=== PATIENT | male | born 1970 | race Caucasian/White ===

== ENCOUNTER 2017-06-04 07:25 | Emergency (ER) | payer BC, OTHER ==
[2017-06-04 07:41] VITALS: BP 110/60
--- NOTE | 2017-06-04 07:54 | UC ---
Respiratory Complaint HPI - HPI Summary HPI Summary: C/O cough with wheezing x 6 days. Azithromycin x 4 days but has just gotten worse. Frontal sinus pain with coughing. - History of Current Complaint Chief Complaint: UCRespiratory Stated Complaint: FEVER,NORMAN,COUGH Time Seen by Provider: 06/04/17 07:48 Hx Obtained From: Patient Onset/Duration: Sudden Onset, Lasting Days - 6, Worse Since - 4 days Timing: Constant Severity Initially: Mild Severity Currently: Severe Pain Intensity: 7 Character: Cough: Nonproductive Aggravating Factors: Deep Breaths, Recumbent Position Alleviating Factors: Nothing Associated Signs And Symptoms: Positive: Fever, Chills, Wheezing, Nasal Congestion, Sinus Discomfort Related History: Seasonal Allergies - Allergies/Home Medications Allergies/Adverse Reactions: Allergies Allergy/AdvReac Type Severity Reaction Status Date / Time Penicillins Allergy Anaphylatic Verified 06/04/17 07:36 Shock Home Medications: Home Medications Albuterol HFA INHALER* [Ventolin HFA Inhaler*] 2 puff INH Q4H PRN 06/04/17 [ History Confirmed 06/04/17] Lisinopril TAB* [Prinivil TAB 10 MG*] 40 mg PO BID 06/04/17 [History Confirmed 06/04/17] Pravastatin (NF) [Pravachol (NF)] 40 mg PO QPM 06/04/17 [History Confirmed 06/04] Sitagliptin Phosphate [Januvia] 25 mg DAILY 06/04/17 [History Confirmed 06/04/17 ] glipiZIDE TAB* [Glucotrol TAB*] 5 mg BID 06/04/17 [History Confirmed 06/04/17] PMH/Surg Hx/FS Hx/Imm Hx Endocrine History: Diabetes Cardiovascular History: Hypertension Respiratory History: Asthma - Surgical History Surgical History: Yes Surgery Procedure, Year, and Place: L3-5 Fusion, 2009. Gastric bypass, 2004. Gallbladder - Family History Known Family History: Positive: Cardiac Disease Negative: Hypertension, Diabetes - Social History Occupation: Employed Full-time Lives: With Family Alcohol Use: Occasionally Substance Use Type: None Smoking Status (MU): Former Smoker Type: Smokeless Tobacco Amount Used/How Often: 5 cans a week Length of Time of Smoking/Using Tobacco: 12 Years Have You Smoked in the Last Year: No - Immunization History Most Recent Influenza Vaccination: not this season Review of Systems Constitutional: Fever, Chills ENT: Sinus Congestion, Sinus Pain/Tenderness Respiratory: Shortness Of Breath, Cough Musculoskeletal: Myalgia Is Patient Immunocompromised?: Yes - Diabetes All Other Systems Reviewed And Are Negative: Yes Physical Exam Triage Information Reviewed: Yes Appearance: No Pain Distress, Ill-Appearing, Obese Vital Signs: Initial Vital Signs Temp 98.2 F 06/04/17 07:36 Pulse 81 06/04/17 07:36 Resp 22 06/04/17 07:36 BP 110/60 06/04/17 07:36 Pulse Ox 97 06/04/17 07:36 Vital Signs Reviewed: Yes Eyes: Positive: Conjunctiva Clear ENT: Positive: Pharynx normal, Nasal congestion, TMs normal Neck exam: Normal Respiratory: Positive: Rhonchi - course upper airway, Wheezing - diffuse expiratory wheezes Cardiovascular Exam: Normal Musculoskeletal Exam: Normal Neurological Exam: Normal Psychological Exam: Normal Skin Exam: Normal UC Diagnostic Evaluation - Laboratory O2 Sat by Pulse Oximetry: 97 Re-Evaluation - Re-Evaluation First Eval Re-Evaluation Time: 08:33 Change: Improved - Still a little bit of wheezing, but air movement is much better. Respiratory Course/Dx - Differential Dx/Diagnosis Differential Diagnosis/HQI/PQRI: Asthma, Lower Resp Infection, Sinusitis Provider Diagnoses: Acute URI. Acute sinusitis. Asthma with acute exacerbation Discharge - Sign-Out/Discharge Documenting (check all that apply): Discharge/Admit/Transfer - Discharge Plan Condition: Stable Disposition: HOME Prescriptions: Cefdinir [Cefdinir 300 MG CAP] 300 mg PO BID #20 capsule predniSONE TAB* [Deltasone TAB*] 20 mg PO DAILY #18 tab Patient Education Materials: Upper Respiratory Infection (ED), Wheezing (ED), Prednisone (By mouth), Cefdinir (By mouth) Referrals: Chucho Zaragoza MD [Primary Care Provider] - Additional Instructions: NASAL SPRAYS AND DROPS: Afrin in the PUMP/ MIST bottle (Get generic 12 hours nasal decongestant spray). Tilt your head down and look at the floor while doing a strong sniff with the spray. Decongestant nasal sprays and drops often give dramatic relief from congestion. They are often recommended for patients with sinus infection to assist with sinus drainage. Persons with high blood pressure should consult the doctor before using these nasal sprays. Afrin and Mak-Synephrine are common [id number] preparations. They should not be used for more than five days, as "rebound" congestion can occur - - the congestion flares as the drug wears off. A way of dealing with this rebound congestion problem is to medicate only one nostril each time, allowing the other nostril to recover from the medicine' s effects. When you no longer need the drug during the day, spray only one nostril each night. This helps you sleep well without severe rebound congestion. Call the doctor if you develop severe headache, palpitations, or chest pain. - Billing Disposition and Condition Condition: STABLE Disposition: HOME
[2017-06-04] MEDS ORDERED: methylPREDNISolone 125 MG* 2 ML VIAL IM ONE (07:58)
[2017-06-04] MEDS ORDERED: Albuterol/Ipratropium NEB.SOL* Albuterol 2.5 MG/Ipratropium 0.5 MG 3 ML INH ONE (07:58)
== END 2017-06-04 08:46 | disposition home or self-care (01) ==
LOC: UCCORT 07:25
DX: J06.9 Acute upper respiratory infection, unspecified (principal); J01.90 Acute sinusitis, unspecified; J45.901 Unspecified asthma with (acute) exacerbation; Z87.891 Personal history of nicotine dependence; Z88.0 Allergy status to penicillin
CPT/HCPCS: 96372; 99202; A9270-GY; G0463; J2930

== ENCOUNTER 2017-11-24 13:48 | Emergency (ER) | payer BC ==
[2017-11-24] MEDS ORDERED: Albuterol/Ipratropium NEB.SOL* Albuterol 2.5 MG/Ipratropium 0.5 MG 3 ML INH ONE (14:20)
[2017-11-24] MEDS ORDERED: predniSONE TAB* 20 MG PO ONE (14:20)
--- NOTE | 2017-11-24 14:28 | ED ---
Respiratory - HPI Summary HPI Summary: 47 yr old with history of asthma, and presents here with chest congestion two days, and then SOB since overnight. He has worse symptoms with exertion, and he feels himself wheezing when he breaths out. He is coughing as well. No chest pain. No pleuritic chest pain. No dizziness. No fever or chills. He is a former smoker. - History of Current Complaint Chief Complaint: UCRespiratory Stated Complaint: SOB Time Seen by Provider: 11/24/17 14:06 Pain Intensity: 0 - Allergy/Home Medications Allergies/Adverse Reactions: Allergies Allergy/AdvReac Type Severity Reaction Status Date / Time Penicillins Allergy Anaphylatic Verified 11/24/17 14:00 Shock PMH/Surg Hx/FS Hx/Imm Hx Endocrine/Hematology History: Reports: Hx Diabetes - Type 2, Hx Thyroid Disease - Type 2 Cardiovascular History: Reports: Hx Hypertension Respiratory History: Reports: Hx Asthma - Surgical History Surgery Procedure, Year, and Place: L3-5 Fusion, 2009. Gastric bypass, 2004. Gallbladder Infectious Disease History: No Infectious Disease History: Denies: Traveled Outside the [place] in Last 30 Days - Family History Known Family History: Positive: Cardiac Disease Negative: Hypertension, Diabetes - Social History Alcohol Use: Occasionally Substance Use Type: Reports: None Smoking Status (MU): Former Smoker Type: Smokeless Tobacco Amount Used/How Often: 5 cans a week Length of Time of Smoking/Using Tobacco: 12 Years Have You Smoked in the Last Year: No Review of Systems Constitutional: Negative Positive: Shortness Of Breath, Cough All Other Systems Reviewed And Are Negative: Yes Physical Exam Triage Information Reviewed: Yes Vital Signs On Initial Exam: Initial Vitals Temp Pulse Resp BP Pulse Ox 97.9 F 100 26 176/108 97 11/24/17 13:49 11/24/17 13:49 11/24/17 13:49 11/24/17 13:49 11/24/17 13:49 Vital Signs Reviewed: Yes Appearance: Positive: Well-Appearing, No Pain Distress Skin: Positive: Warm, Skin Color Reflects Adequate Perfusion Head/Face: Positive: Normal Head/Face Inspection Eyes: Positive: EOMI ENT: Positive: Pharynx normal, Nasal congestion, TMs normal Neck: Positive: Nontender Respiratory/Lung Sounds: Positive: Wheezes - bilateral faint Cardiovascular: Positive: RRR. Negative: Murmur Abdomen Description: Positive: Nontender Musculoskeletal: Positive: Strength/ROM Intact Neurological: Positive: Sensory/Motor Intact, Alert, Oriented to Person Place, Time, CN Intact II-III Psychiatric: Positive: Normal - Avelina Coma Scale Best Eye Response: 4 - Spontaneous Best Motor Response: 6 - Obeys Commands Best Verbal Response: 5 - Oriented Coma Scale Total: 15 Diagnostics - Vital Signs Vital Signs Temp Pulse Resp BP Pulse Ox 11/24/17 13:49 97.9 F 100 26 176/108 97 - Laboratory Lab Statement: Any lab studies that have been ordered have been reviewed, and results considered in the medical decision making process. - EKG 11/24/17 Cardiac Rate: NL EKG Rhythm: Sinus Rhythm ST Segment: Normal Ectopy: None EKG Comparison: No Significant Change Disposition - Course Course Of Treatment: 47 yr old male with probable chf on chest xray. Called [place] BUST[facility], ISAURA March NP, and they will see for further work up. - Diagnoses Provider Diagnoses: CHF (congestive heart failure), Shortness of breath, Hypertension Discharge - Sign-Out/Discharge Documenting (check all that apply): Patient Departure All imaging exams completed and their final reports reviewed: Yes - Discharge Plan Condition: Good Disposition: TRANS HIGHER LVL OF CARE FAC Referrals: Chucho Zaragoza MD [Primary Care Provider] - - Billing Disposition and Condition Condition: GOOD Disposition: Trans Higher Lvl of Care Fac
--- NOTE | 2017-11-24 14:46 | RAD ---
HISTORY: sob ,cough COMPARISONS: June 28, 2012 VIEWS: 4: Frontal dual-energy and lateral views of the chest. FINDINGS: CARDIOMEDIASTINAL SILHOUETTE: The cardiomediastinal silhouette is normal. RASHIDA: The rashida are normal. PLEURA: The costophrenic angles are sharp. No pleural abnormalities are noted. LUNG PARENCHYMA: There is a diffuse pattern of reticular opacification. ABDOMEN: The upper abdomen is clear. There is no subphrenic gas. BONES AND SOFT TISSUES: No bone or soft tissue abnormalities are noted. OTHER: None. IMPRESSION: DIFFUSE INTERSTITIAL OPACIFICATION. THE DIFFERENTIAL INCLUDES PULMONARY INTERSTITIAL EDEMA OR INTERSTITIAL INFECTIOUS OR INFLAMMATORY PROCESSES, INCLUDING PNEUMONITIS.
[2017-11-24] MEDS ORDERED: Furosemide IV* 10 MG/ML 2 ML VIAL (20 MG) IV ONE (14:50)
[2017-11-24] MEDS ORDERED: Aspirin 81 mg CHEW TAB* 81 MG TAB.CHEW PO ONE (14:51)
[2017-11-24 15:10] VITALS: BP 137/108
== END 2017-11-24 15:10 | disposition short-term general hospital (02) ==
LOC: UCCORT 13:48
DX: I50.9 Heart failure, unspecified (principal); R06.02 Shortness of breath; I10 Essential (primary) hypertension; Z87.891 Personal history of nicotine dependence; Z88.0 Allergy status to penicillin
CPT/HCPCS: 71046; 93005; 99213; A9270-GY; G0463; J1940; J7512

== ENCOUNTER 2018-04-06 10:46 | Emergency (ER) | payer BC ==
--- OUTSIDE RECORDS SUMMARY | 2018-04-06 11:12 | XMS REPORT | Continuity of Care Document ---
:1970 External Reference #:[id number] Author Name Fransico Alcala M.D., [facility] Address [address] [place] [address] Care Team Providers Name Role Phone Kasi Garibay DPM Care Team Information Director Operating Room Unavailable Chucho Zaragoza MD Primary Care Physician Unavailable Payers Date Identification Numbers Payment Provider Subscriber Policy Number: [id number] Jacki Ivory PayID: [id number] [address] [address] [place] [address] Onset: 2005 Policy Number: [id number] Jacky Ivory Group Number: [id number] [address] [address] PayID: [id number] [place] [address] Onset: 2001 Policy Number: [id number] [facility] Stas Ivory Group Name: Workers Compensation [address] [place] [address] PayID: [id number] [place] [address] Onset: 2005 Policy Number: [id number] [facility] Stas Ivory Group Name: Workers Compensation [address] [address] PayID: [id number] [place] [address] Advance Directives Description No Information Available Problems Date Description Provider Status Onset: 03/29/2018 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 Onset: 03/20/2018 Paroxysmal ventricular tachycardia Fransico Alcala M.D., Active FACC Onset: 03/20/2018 Cerebral artery occlusion Fransico Alcala M.D., Active FACC Onset: 02/15/2018 Heart failure, unspecified Fransico Alcala M.D., Active FACC Onset: 12/05/2017 Cardiomyopathy, unspecified Fransico Alcala M.D., Active FACC Onset: 12/05/2017 Type 2 diabetes mellitus Fransico Alcala M.D., Active FACC Onset: 12/05/2017 Hyperlipidemia Fransico Alcala M.D., Active FACC Onset: 12/05/2017 Morbid obesity Fransico Alcala M.D., Active FACC Family History Date Family Member(s) Observation Comments Father Heart Attack Mother Heart Attack Social History Type Date Description Comments Sex Unknown Lives With Diet Patient follows no dietary restrictions 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 Independent with all ADL's Tobacco Use Start: Unknown Never Smoked Cigarettes Smoking Status Reviewed: 03/29/18 Never Smoked Cigarettes ETOH Use Currently consumes alcohol socially Allergies, Adverse Reactions, Alerts Date Description Reaction Status Severity Comments 06/04/2013 Penicillin Active Medications Medication Date Status Form Strength Qnty SIG Indications Ordering Provider Eliquis Active Tablets 5mg 60tab 1 tab I63.9 [place], 9 s by Carolyn mouth Simonetta twice a , MSN, day [employer] Amiodarone HCL Active Tablets 200mg 90tab 1 by Fredrick 9 s mouth , Fransico every MDede Gonzalez, day [facility] Entresto Active Tablets 24-26mg 120ta take Fredrick 9 bs one Fransico tablet Dede Graff, by [facility] mouth twice a day Lasix Active Tablets 40mg 90tab 1 by Fredrick 9 s mouth , Fransico every MDede Gonzalez, day FAC Spironolactone Active Tablets 25mg 90tab 1 by Fredrick 9 s mouth , Fransico every MDede Gonzalez, day [facility] Glipizide Active Tablets 1 po Unknown 0 bid Januvia Active Tablets 100mg 1 by Unknown 0 mouth every day Atorvastatin Active Tablets 40mg 1 by Unknown Calcium 0 mouth every day at night Invokana Active Tablets 300mg 90tab 1 by Niziol, 0 s mouth Chucho every MD day Spironolactone Hx Tablets 25mg 90tab 1 by Fredrick 8 - s mouth , Fransico every M. MSherif., 8 day FACC Lisinopril Hx Tablets 40mg 1 by Fredrick 8 - mouth , Fransico every M. MSherif., 9 day FACC Meloxicam Hx Tablets 15mg 30tab 1 po qd Vyas, 4 - s Delta Casillas, D.O. Lisinopril Hx Tablets 20mg 90tab 1 po qd Unknown 0 - s 8 Ventolin HFA Hx Aerosol 108(90Base prn Unknown 0 - ) mcg/Act 4 Benzonatate Hx Capsules 200mg po qd Unknown 0 - 4 Metformin HCL Hx Tablets 500mg 60tab 1 po Unknown 0 - s bid Unknown Furosemide Hx Tablets 40mg 1 by Unknown 0 - mouth Unknown every day prn Pravastatin Hx Tablets 40mg 1 by Unknown Sodium 0 - mouth Unknown every day Aspirin Adult Hx Tablets DR 81mg 1 by I63.9 Unknown Low Dose 0 - mouth every 9 day Medications Administered in Office Medication Date Status Form Strength Qnty SIG Indications Ordering Provider Depomedrol Administered Injection Vyas, 40mg/1cc Soheila Casillas (methylprednis D.O. olone acetate) Immunizations Description No Information Available Vital Signs Date Vital Result Comment 03/29/2018 9:08am BP Systolic Sitting Left Arm 102 mmHg BP Diastolic Sitting Left Arm 78 mmHg Heart Rate 96 /min Respiratory Rate 18 /min Height 72.75 inches 6'0.75" Weight 309.00 lb BMI (Body Mass Index) 41.0 kg/m2 BSA (Body Surface Area) 2.58 m2 [place] body weight in kilograms 83 kg O2 % BldC Oximetry 91 % Ora 03/20/2018 12:56pm BP Systolic Sitting Left Arm 119 mmHg BP Diastolic Sitting Left Arm 78 mmHg Heart Rate 103 /min Respiratory Rate 18 /min Height 72.75 inches 6'0.75" Weight 321.00 lb BMI (Body Mass Index) 42.6 kg/m2 BSA (Body Surface Area) 2.62 m2 [place] body weight in kilograms 83 kg O2 % BldC Oximetry 97 % 03/05/2018 2:09pm BP Systolic Sitting Left Arm 119 mmHg BP Diastolic Sitting Left Arm 86 mmHg Heart Rate 73 /min Respiratory Rate 16 /min Height 72.75 inches 6'0.75" Weight 312.00 lb BMI (Body Mass Index) 41.4 kg/m2 BSA (Body Surface Area) 2.59 m2 [place] body weight in kilograms 83 kg O2 % BldC Oximetry 97 % Ra 02/15/2018 11:13am BP Systolic 162 mmHg BP Diastolic 107 mmHg Heart Rate 93 /min Respiratory Rate 16 /min Height 72.75 inches 6'0.75" Weight 328.00 lb BMI (Body Mass Index) 43.6 kg/m2 BSA (Body Surface Area) 2.65 m2 [place] body weight in kilograms 83 kg O2 % BldC Oximetry 97 % 12/05/2017 2:34pm BP Systolic Sitting Left Arm 105 mmHg BP Diastolic Sitting Left Arm 68 mmHg Heart Rate 70 /min Respiratory Rate 18 /min Height 72.75 inches 6'0.75" Weight 309.00 lb BMI (Body Mass Index) 41.0 kg/m2 BSA (Body Surface Area) 2.58 m2 [place] body weight in kilograms 83 kg 06/04/2013 1:52pm BP Systolic Sitting Left Arm 160 mmHg BP Diastolic Sitting Left Arm 102 mmHg Height 72.75 inches 6'0.75" Weight 344.00 lb BMI (Body Mass Index) 45.7 kg/m2 BSA (Body Surface Area) 2.70 m2 Results Test Date Facility Test Result H/L Range Note CBC 03/20/2018 [facility] White Blood 8.9 K/uL N 3.4-10.5 1 W/Automated [address] Count Diff [place], [place] [id number] [phone] Red Blood Count 4.89 M/uL N 4.20-5.80 Hemoglobin 15.4 gm/dL N 12.8-17.0 Hematocrit 43.4 % N 38.0-48.0 Mean Cell Volume 88.8 fl N 80.0-96.0 Mean Corpuscular HGB 31.5 pg N 27.0-33.0 Mean Corpuscular HGB Conc 35.5 g/dL N 31.7-36.0 Platelet Count 261 K/uL N 155-360 Red Cell Distri Width SD 41.1 fl N 36-51 Red Cell Distri Width %CV 13.1 % N 11.6-15.8 Mean Platelet Volume 10.1 fL N 6.6-10.6 Neut% 64.7 % N 33.0-73.0 Lymph % 23.6 % N 20.0-42.0 [place] % 8.0 % N 0.0-10.0 Eo% 3.2 % N 0.0-6.6 Bas% 0.5 % N 0.0-1.1 Neut# 5.75 K/uL N 1.8-7.0 Lymph # 2.10 K/uL N 1.0-4.0 [place] # 0.71 K/uL N 0.0-0.8 Eos # 0.28 K/uL N 0.0-0.5 Baso # 0.04 K/uL N 0.0-0.1 Basic Metabolic 02/22/2018 [facility] Sodium 138 mmol /L N 135-145 Panel [phone] Potassium 5.0 mmol/L N 3.5-5.0 Chloride 100 mmol/L Low 101-111 Co2 Carbon Dioxide 29 mmol/L N 22-32 Anion Gap 9 mmol/L N 2-11 Glucose 275 mg/dL High 70-100 Blood Urea Nitrogen 19 mg/dL N 6-24 Creatinine 0.93 mg/dL N 0.67-1.17 BUN/Creatinine Ratio 20.4 High 8-20 Calcium 9.8 mg/dL N 8.6-10.3 Egfr Non- 86.4 >60 Egfr 104.5 >60 2 Basic Metabolic 12/22/2017 [facility] Sodium 137 mmol /L N 135-145 Panel [phone] Chloride 105 mmol/L N 101-111 Co2 Carbon Dioxide 25 mmol/L N 22-32 Glucose 175 mg/dL High 70-100 Blood Urea Nitrogen 17 mg/dL N 6-24 Creatinine 0.86 mg/dL N 0.67-1.17 BUN/Creatinine Ratio 19.8 N 8-20 Calcium 9.3 mg/dL N 8.6-10.3 Egfr Non- 94.5 >60 Egfr 114.4 >60 3 Potassium 5.1 mmol/L High 3.5-5.0 Anion Gap 7 mmol/L N 2-11 Basic Metabolic 12/14/2017 [facility] Sodium 137 mmol /L N 135-145 Panel [phone] Chloride 106 mmol/L N 101-111 Co2 Carbon Dioxide 25 mmol/L N 22-32 Glucose 128 mg/dL High 70-100 Blood Urea Nitrogen 30 mg/dL High 6-24 Creatinine 1.06 mg/dL N 0.67-1.17 BUN/Creatinine Ratio 28.3 High 8-20 Calcium 9.0 mg/dL N 8.6-10.3 Egfr Non- 74.3 >60 Egfr 89.8 >60 4 Potassium 5.5 mmol/L High 3.5-5.0 Anion Gap 6 mmol/L N 2-11 Anion Gap 11/26/2017 N2N/CCD Import Anion Gap 11 8-16 SerPl-sCnc SerPl-sCnc Automated blood 11/26/2017 N2N/CCD Import Automated blood 43.0 38.0-48. hematocrit (volume hematocrit (volume 0 fraction) fraction) Serum sodium 11/26/2017 N2N/CCD Import Serum sodium 141 136-145 measurement measurement Serum or plasma 11/26/2017 N2N/CCD Import Serum or plasma 33.0 urea urea nitrogen/creatinin nitrogen/creatinin e mass rati e mass ratio Serum or plasma 11/26/2017 N2N/CCD Import Serum or plasma 43 #H 7-18 urea nitrogen urea nitrogen measurement measurement (mass/vo (mass/volume) Serum or plasma 11/26/2017 N2N/CCD Import Serum or plasma 167 High 74- 106 glucose glucose measurement measurement (mass/volume) (mass/volume) Serum or plasma 11/26/2017 N2N/CCD Import Serum or plasma 1.3 0.6-1.3 creatinine creatinine measurement measurement (mass/volum (mass/volume) Automated blood 11/26/2017 N2N/CCD Import Automated blood 246 155-360 platelet count platelet count Automated blood 11/26/2017 N2N/CCD Import Automated blood 10.9 High 6.6- 10.6 platelet mean platelet mean volume measurement volume measurement Automated 11/26/2017 N2N/CCD Import Automated 31.5 27.0-33. erythrocyte mean erythrocyte mean 0 corpuscular corpuscular hemoglobin hemoglobin (mass per erythrocyte) Automated 11/26/2017 N2N/CCD Import Automated 33.7 31.7-36. erythrocyte mean erythrocyte mean 0 corpuscular corpuscular hemoglobin hemoglobin concentration measurement (mass/volume) Automated 11/26/2017 N2N/CCD Import Automated 93.5 80.0-96. erythrocyte mean erythrocyte mean 0 corpuscular volume corpuscular volume Blood erythrocytes 11/26/2017 N2N/CCD Import Blood erythrocytes 4.60 4.20-5.8 automated count automated count 0 (number/volume) (number/volume) Blood hemoglobin 11/26/2017 N2N/CCD Import Blood hemoglobin 14.5 12.8- 17. measurement measurement 0 (mass/volume) (mass/volume) Blood leukocytes 11/26/2017 N2N/CCD Import Blood leukocytes 16.4 High 3.4 -10.5 automated count automated count (number/volume) (number/volume) Serum or plasma 11/26/2017 N2N/CCD Import Serum or plasma 8.2 Low 8.5- 10.1 calcium calcium measurement measurement (mass/volume) (mass/volume) Serum carbon 11/26/2017 N2N/CCD Import Serum carbon 28 21-32 dioxide dioxide measurement measurement RDW RBC Auto-Rto 11/26/2017 N2N/CCD Import RDW RBC Auto-Rto 13.8 11.6- 15. 8 Potassium 11/26/2017 N2N/CCD Import Potassium 3.8 3.5-5.1 SerPl-sCnc SerPl-sCnc Chloride 11/26/2017 N2N/CCD Import Chloride 102 98-107 SerPl-sCnc SerPl-sCnc Serum or plasma 11/25/2017 N2N/CCD Import Serum or plasma 63 >40 cholesterol in HDL cholesterol in HDL measurement (ma measurement (mass/volume) Serum or plasma 11/25/2017 N2N/CCD Import Serum or plasma 96 < 100 cholesterol in LDL cholesterol in LDL measurement by measurement by calculation (mass/volume) Serum or plasma 11/25/2017 N2N/CCD Import Serum or plasma 181 <200 cholesterol cholesterol measurement measurement (mass/volu (mass/volume) RDW RBC Auto 11/25/2017 N2N/CCD Import RDW RBC Auto 44.4 36-51 Neutrophils/leuk 11/25/2017 N2N/CCD Import Neutrophils/leuk 92.3 High 33.0-73. NFr Bld Auto NFr Bld Auto 0 Serum or plasma 11/25/2017 N2N/CCD Import Serum or plasma 109 <150 triglyceride triglyceride measurement measurement (mass/vol (mass/volume) * Miscellaneous 11/25/2017 N2N/CCD Import * Miscellaneous Test(s) studies (set) studies (set) added Automated blood 11/25/2017 N2N/CCD Import Automated blood 0.01 0.0-0.1 basophil count basophil count (count/volume) (count/volume) Automated blood 11/25/2017 N2N/CCD Import Automated blood 0.00 0.0-0.5 eosinophil count eosinophil count Automated blood 11/25/2017 N2N/CCD Import Automated blood 0.84 Low 1.0- 4.0 lymphocyte count lymphocyte count (number/volume) (number/volume) Basophils/leuk NFr 11/25/2017 N2N/CCD Import Basophils/leuk NFr 0.1 0.0- 1.1 Bld Auto Bld Auto Blood monocytes 11/25/2017 N2N/CCD Import Blood monocytes 0.23 0.0-0.8 automated count automated count (number/volume) (number/volume) Eosinophil/leuk 11/25/2017 N2N/CCD Import Eosinophil/leuk 0.0 0.0-6.6 NFr Bld Auto NFr Bld Auto Neutrophils # Bld 11/25/2017 N2N/CCD Import Neutrophils # Bld 12.90 High 1.8-7.0 Auto Auto Monocytes/leuk NFr 11/25/2017 N2N/CCD Import Monocytes/leuk NFr 1.6 0.0- 10.0 Bld Auto Bld Auto Lymphocytes/leuk 11/25/2017 N2N/CCD Import Lymphocytes/leuk 6.0 Low 20.0- 42. NFr Bld Auto NFr Bld Auto 0 Arterial blood 11/24/2017 N2N/CCD Import Arterial blood 86 Low 93-98 oxygen saturation oxygen saturation measurement by pu measurement by pulse oximetry Determination of 11/24/2017 N2N/CCD Import Determination of 21 21-100 inhaled oxygen inhaled oxygen concentration (vol concentration (volume fraction) Heart rate by 11/24/2017 N2N/CCD Import Heart rate by 92 oximetry oximetry Unloinc 11/24/2017 N2N/CCD Import Unloinc Resting Unloinc Lying Flat In Bed Influenza virus A 11/24/2017 N2N/CCD Import Influenza virus A Negative ( Negative) antigen detection antigen detection Unloinc 11/24/2017 N2N/CCD Import Unloinc . TSH SerPl-aCnc 11/24/2017 N2N/CCD Import TSH SerPl-aCnc 0.82 0.30-4.20 Serum or plasma 11/24/2017 N2N/CCD Import Serum or plasma 0.4 0.2-1.0 total bilirubin total bilirubin measurement (mass/ measurement (mass/volume) Serum or plasma 11/24/2017 N2N/CCD Import Serum or plasma 7.2 6.4-8.2 protein measurement protein (mass/volume) measurement (mass/volume) Serum or plasma 11/24/2017 N2N/CCD Import Serum or plasma 1085.0 High < 125 natriuretic peptide natriuretic B prohormone N peptide B prohormone N-terminal measurement (mass/volume) Serum or plasma 11/24/2017 N2N/CCD Import Serum or plasma 1.8 1.8-2.4 magnesium magnesium measurement measurement (mass/volume (mass/volume) Serum or plasma 11/24/2017 N2N/CCD Import Serum or plasma 0.99 0.76- 1.46 free thyroxine free thyroxine (FT4) measurement ( (FT4) measurement (mass/volume) Serum or plasma 11/24/2017 N2N/CCD Import Serum or plasma 17 15-37 aspartate aspartate aminotransferase aminotransferase measure measurement (enzymatic activity/volume) Serum or plasma 11/24/2017 N2N/CCD Import Serum or plasma 96 45-117 alkaline alkaline phosphatase phosphatase measurement ( measurement (enzymatic activity/volume) Serum or plasma 11/24/2017 N2N/CCD Import Serum or plasma 3.6 3.4-5.0 albumin measurement albumin (mass/volume) measurement (mass/volume) Globulin Ser 11/24/2017 N2N/CCD Import Globulin Ser 3.6 1.9-4.3 Calc-mCnc Calc-mCnc Erythrocyte 11/24/2017 N2N/CCD Import Erythrocyte 5 0-15 sedimentation rate sedimentation rate by 15 minute readin by 15 minute reading Albumin/Glob SerPl 11/24/2017 N2N/CCD Import Albumin/Glob SerPl 1.0 Alt SerPl-cCnc 11/24/2017 N2N/CCD Import Alt SerPl-cCnc 33 12-78 Legionella 11/24/2017 N2N/CCD Import Legionella Negative Negative pneumophila 1 Ag pneumophila 1 Ag [Presence] in Urine [Presence] in by Urine by Immunoassay Rapid influenza B 11/24/2017 N2N/CCD Import Rapid influenza B Negative ( Negative) antigen detection antigen detection 1 I42.9 2 Because ethnic data is not always readily available, this report includes an eGFR for both -Americans and non- Americans. The National Kidney Disease Education Program (NKDEP) does not endorse the use of the MDRD equation for patients that are not between the ages of 18 and 70, are , have extremes of body size, muscle mass, or nutritional status, or are non- or non-. According to the National Kidney Foundation, irrespective of diagnosis, the stage of the disease is based on the level of kidney function: Stage Description GFR(mL/min/1.73 m(2)) 1 Kidney damage with normal or decreased GFR 90 2 Kidney damage with mild decrease in GFR 60-89 3 Moderate decrease in GFR 30-59 4 Severe decrease in GFR 15-29 5 Kidney failure <15 (or dialysis) 3 Because ethnic data is not always readily available, this report includes an eGFR for both -Americans and non- Americans. The National Kidney Disease Education Program (NKDEP) does not endorse the use of the MDRD equation for patients that are not between the ages of 18 and 70, are , have extremes of body size, muscle mass, or nutritional status, or are non- or non-. According to the National Kidney Foundation, irrespective of diagnosis, the stage of the disease is based on the level of kidney function: Stage Description GFR(mL/min/1.73 m(2)) 1 Kidney damage with normal or decreased GFR 90 2 Kidney damage with mild decrease in GFR 60-89 3 Moderate decrease in GFR 30-59 4 Severe decrease in GFR 15-29 5 Kidney failure <15 (or dialysis) 4 Because ethnic data is not always readily available, this report includes an eGFR for both -Americans and non- Americans. The National Kidney Disease Education Program (NKDEP) does not endorse the use of the MDRD equation for patients that are not between the ages of 18 and 70, are , have extremes of body size, muscle mass, or nutritional status, or are non- or non-. According to the National Kidney Foundation, irrespective of diagnosis, the stage of the disease is based on the level of kidney function: Stage Description GFR(mL/min/1.73 m(2)) 1 Kidney damage with normal or decreased GFR 90 2 Kidney damage with mild decrease in GFR 60-89 3 Moderate decrease in GFR 30-59 4 Severe decrease in GFR 15-29 5 Kidney failure <15 (or dialysis) Procedures Date Code Description Status 12/05/2017 42761 EKG-Tracing And Report Completed 11/30/2017 22097 Echocardiogram Complete Completed 07/17/2013 11279 Asp./Injection major joint Completed 06/04/2013 34354 Radiology, Shoulder: Two Views (Sso) Completed Encounters Type Date Location Provider Dx Diagnosis Office Visit 03/29/2018 Cardiology Office Fransico Alcala I42.9 Cardiomyopathy, 9:00a Dede Graff, FACC unspecified I47.2 Ventricular tachycardia I25.10 Athscl heart disease of huslia coronary artery w/o ang pctrs I63.9 Cerebral infarction, unspecified Office Visit 03/20/2018 Cardiology Maxim Alcala42.9 Cardiomyopathy, 1:00p Office Fransico Graff M.D., unspecified FACC I63.9 Cerebral infarction, unspecified I47.2 Ventricular tachycardia Office Visit 03/05/2018 2:00p Cardiology Carolyn Ferris I63.9 Cerebral Office JEAN Novak, infarction, [employer] unspecified I42.9 Cardiomyopathy, unspecified E78.5 Hyperlipidemia, unspecified I50.9 Heart failure, unspecified E11.9 Type 2 diabetes mellitus without complications Office Visit 02/15/2018 Cardiology Juju Alcala Cardiomyopathy, 11:20a Office Fransico Graff M.D., unspecified FACC E78.5 Hyperlipidemia, unspecified E11.9 Type 2 diabetes mellitus without complications I50.9 Heart failure, unspecified Office Visit 12/05/2017 Cardiology Fredrick, I42.9 Cardiomyopathy, 2:40p Office Fransico Graff M.D., unspecified FACC E66.01 Morbid (severe) obesity due to excess calories E78.5 Hyperlipidemia, unspecified E11.9 Type 2 diabetes mellitus without complications Office Visit 07/17/2013 2:45p Orthopaedic Office Delta Vyas 717.2 Derangement Sonja, D.O. Posterior Horn Medial Meniscus Office Visit 06/04/2013 1:45p Orthopaedic Office Delta Vyas 726.10 Bursae & Tendon Stacey., D.O. Disorders Shoulder Region Unspec 715.11 Osteoarthrosis Localized Prim Shoulder Region 726.13 Partial Tear Of Rotator Cuff Office Visit 08/08/2006 Orthopaedic Abbie Espitia 727.06 Tenosynovitis Foot 2:45p Office [facility] 726.90 Enthesopathy Unspec Site Office Visit 06/16/2006 11:00a Orthopaedic Office Abbie Espitia 719.47 Pain Joint MD [facility] Plan of Treatment Future Appointment(s):07/05/2018 4:00 pm - Fransico Alcala M.D., FACC at Cardiology [facility]/29/2018 - Fransico Alcala M.D., FACCI42.9 Cardiomyopathy, unspecifiedNew Orders:Echocardiogram, Ordered: 03/29/18Comments: Non-ischemic CMP. His symptoms have dramatically improved. He is able to walk only limited by his back pain. His BP is low and I prefer not to introduce changes in the medications now. He will continuewith entresto and spironolactone. My hope in the next 3 months we will be able to see also an objective improvement in his EF. This will help him keep his job and will decrease the need for a primary prevention ICD.I47.2 Ventricular tachycardiaComments:He did not have symptoms during his VT. I believe that the main reason was the brief duration. He isnow on amiodarone. He will stop his EM.I25.10 Atherosclerotic heart disease of [place] coronary artery without angina pectorisComments:He is on atorvastatin. His CAD is not severe and definitely does not explain his CMP.I63.9 Cerebral infarction, unspecifiedComments:Will continue EliquisAllFollow up:Follow up visit in three months.
[2018-04-06 11:20] VITALS: BP 113/83
--- NOTE | 2018-04-06 12:21 | UC ---
Lower Extremity/Ankle HPI - HPI Summary HPI Summary: 47-year-old male presents with 3 week history of left foot pain. Describes pain as an intense ache that improves after he is up and ambulating for a while. States pain is at its worst when he first steps on the foot first thing in the morning or after sitting for an extended period of time. Pain is located to the lateral aspect of his dorsal left foot. Reports that he did have a previous fracture in that area as a child. Denies injury, fever, chills , erythema, swelling, or open wounds. - History of Current Complaint Chief Complaint: UCLowerExtremity Stated Complaint: LEFT FOOT/ANKLE PAIN Time Seen by Provider: 04/06/18 12:11 Hx Obtained From: Patient Pain Intensity: 3 - Allergies/Home Medications Allergies/Adverse Reactions: Allergies Allergy/AdvReac Type Severity Reaction Status Date / Time Penicillins Allergy Anaphylatic Verified 04/06/18 11:17 Shock PMH/Surg Hx/FS Hx/Imm Hx Endocrine History: Diabetes, Dyslipidemia Cardiovascular History: Hypertension Respiratory History: Asthma - Surgical History Surgical History: Yes Surgery Procedure, Year, and Place: L3-5 Fusion, 2009. Gastric bypass, 2004. Gallbladder - Family History Known Family History: Positive: Cardiac Disease Negative: Hypertension, Diabetes - Social History Occupation: Employed Full-time Lives: With Family Alcohol Use: None Substance Use Type: None Smoking Status (MU): Current Every Day Smoker Type: Smokeless Tobacco Amount Used/How Often: 5 cans a week Length of Time of Smoking/Using Tobacco: 12 Years Have You Smoked in the Last Year: No - Immunization History Most Recent Influenza Vaccination: not this season Review of Systems All Other Systems Reviewed And Are Negative: Yes Constitutional: Negative: Fever, Chills Skin: Negative: Rash, Bruising, Other - lesions, open wounds Respiratory: Positive: Negative Cardiovascular: Positive: Negative Gastrointestinal: Positive: Negative Genitourinary: Positive: Negative Motor: Negative: Weakness Neurovascular: Negative: Decreased Sensation Musculoskeletal: Positive: Other: - See HPI Neurological: Positive: Negative Is Patient Immunocompromised?: No Physical Exam - Summary Physical Exam Summary: GENERAL APPEARANCE: Well developed, obese, alert and cooperative, and appears to be in no acute distress. CARDIAC: Normal S1 and S2. No S3, S4 or murmurs. Rhythm is regular. There is no peripheral edema, cyanosis or pallor. Extremities are warm and well perfused. Capillary refill is less than 2 seconds. Peripheral pulses intact. LUNGS: Clear to auscultation without rales, rhonchi, wheezing or diminished breath sounds. ABDOMEN: Positive bowel sounds. Soft, nondistended, nontender. No guarding or rebound. No masses or hepatosplenomegally. MUSKULOSKELETAL: Normal muscular development. Limping gait. EXTREMITIES: Tenderness with palpation to the lateral aspect of dorsal left foot. No erythema, ecchymosis, edema, lesions, or deformity noted. Circulation and sensation intact distally. SKIN: Skin normal color, texture and turgor with no lesions or eruptions. Triage Information Reviewed: Yes Vital Signs: Initial Vital Signs Temp 98.2 F 04/06/18 11:15 Pulse 88 04/06/18 11:15 Resp 18 04/06/18 11:15 BP 113/83 04/06/18 11:15 Pulse Ox 99 04/06/18 11:15 Vital Signs Reviewed: Yes Diagnostics - Radiology No standard instances Radiology Interpretation Completed By: Radiologist Summary of Radiographic Findings: Patient Name: SHAWN COTE Medical Record#: [id number]. Ordering Physician: River Singh NP Acct.#: [id number]. : 1970 Age: 47 Sex: M Location: [facility]. Exam Date: 1224 ADM Status: REG ER. Order Information: FOOT LEFT 3+ VWS. Accession Number: [id number]. CPT: 75477. Indication: Left foot pain. 3 views of left foot demonstrates no fracture or dislocation. No other bone or joint abnormality is identified. IMPRESSION: No fracture of the left foot is noted. Lower Extremity Course/Dx - Course Course Of Treatment: 47-year-old male presents with 3 week history of left foot pain. Describes pain as an intense ache that improves after he is up and ambulating for a while. States pain is at its worst when he first steps on the foot first thing in the morning or after sitting for an extended period of time. Pain is located to the lateral aspect of his dorsal left foot. Reports that he did have a previous fracture in that area as a child. Denies injury, fever, chills, erythema, swelling, or open wounds. Afebrile. Vital signs stable. X-ray reveals adult male in no acute distress with tenderness to the lateral aspect of his dorsal left foot, no erythema, ecchymosis, lesions, open wounds, or deformities noted, limping gait, and otherwise unremarkable exam. X- ray showed no evidence of fracture or dislocation. I suspect his pain may be from a plantar fascitis although I cannot fully rule out the possibility of tendinitis or beginnings of peripheral neuropathy. Discussed findings with the patient and am recommending symptomatic treatment including a short course of NSAIDs as well as exercises for plantar fasciitis. He is to follow-up with primary care provider in 5 days if symptoms do not improve. Anticipatory guidance and warning symptoms were reviewed with the patient. Verbalizes understanding and agrees with plan of care. - Differential Dx/Diagnosis Differential Diagnosis/HQI/PQRI: Arthritis, Contusion, Fracture (Closed), Gout, Sprain, Tendonitis, Tenosynovitis, Other - plantar faciitis Provider Diagnosis: Plantar fasciitis of left foot Discharge - Sign-Out/Discharge Documenting (check all that apply): Patient Departure All imaging exams completed and their final reports reviewed: Yes - Discharge Plan Condition: Stable Disposition: HOME Prescriptions: Naproxen [Naproxen 375 mg tab] 375 mg PO Q12HR #20 tablet Patient Education Materials: Plantar Fasciitis Exercises (GEN), Plantar Fasciitis (ED) Referrals: Chucho Zaragoza MD [Primary Care Provider] - 5 Days (If no improvement.) Additional Instructions: The x-ray performed in the clinic today showed no evidence of fracture. I suspect that you may have a condition called planter fasciitis although I cannot fully exclude another cause such as tendonitis or diabetic neuropathy. Take naproxen 375 mg 1 tab every 12 hours for the next 7 days then may take as needed. I have provided you with some exercises you can perform to help improve your symptoms. Follow up with your primary care provider in 5 days if symptoms do not improve. Seek immediate medical attention in the emergency room if you develop fever greater than 100.5 F, have worsening of pain despite taking pain medication, develop redness or swelling of the foot, are unable to ambulate, or have any worsening of symptoms. - Billing Disposition and Condition Condition: STABLE Disposition: Home - Attestation Statements Provider Attestation: Per institutional requirements, I have reviewed the chart, however, I was not consulted specifically or made aware of this patient by the midlevel provider. I did not personally evaluate, interact with , or disposition this patient.
== END 2018-04-06 13:04 | disposition home or self-care (01) ==
LOC: UCCORT 10:46
DX: M72.2 Plantar fascial fibromatosis (principal); E11.9 Type 2 diabetes mellitus without complications; F17.290 Nicotine dependence, other tobacco product, uncomplicated; I10 Essential (primary) hypertension; J45.909 Unspecified asthma, uncomplicated; E66.9 Obesity, unspecified; Z88.0 Allergy status to penicillin
CPT/HCPCS: 99212; G0463

== ENCOUNTER → 2019-01-16 13:17 | Day surgery (SDC) | payer OTHER ==
[~2019-01-16 13:17] MED LIST: Acetaminophen TAB* 325 MG ONE; Acetaminophen TAB* 325 MG PO ONE; Acetaminophen TAB* 325 MG PO PRN; Buffered Lidocaine 1% SYRIN* 1 ML/SYRINGE INTRADERM ONE; Cisatracurium* 2 MG/ML MDV 5 ML ONE; Dexamethasone IV* 4 MG/ML 1 ML (4 MG) ONE; DiMENhydriNATE IV* 50 MG/ML VIAL IV PUSH PRN; EPHEDrine (Pressors)* 50 MG/ML VIAL ONE; Famotidine IV* 10 MG/ML 2 ML (20 mg) IV ONE; Famotidine IV* 10 MG/ML 2 ML (20 mg) ONE; Gabapentin CAP(*) 400 MG PO ONE; HYDROcodone/ACETAMIN 5-325 MG* 1 TAB ONE; HYDROcodone/ACETAMIN 5-325 MG* 1 TAB PO PRN; Ketorolac INJ* 30 MG/ML 1 ML VIAL ONE; Lactated Ringers 1000 ML Bag* 1,000 ML IV SCH; Lidocaine 2% PF * 5 ML VIAL ONE; Midazolam* 1 MG/ML 5 ML VIAL (5 MG) ONE; Naloxone* 0.4 MG/ML 1 ML VIAL IV PRN; Ondansetron INJ* 2 MG/ML VIAL IV PRN; Ondansetron INJ* 2 MG/ML VIAL ONE; Propofol* 10 MG/ML 20 ML BTL ONE; Ropivacaine 0.2% * 2 MG/ML VIAL ONE; Succinylcholine* 20 MG/ML 10 ML VIAL ONE; ceFAZolin 1 GM ADVAN(*) 1 GM ADDV.VIAL IVPB ONE; ceFAZolin 2 GM PREMIX in ORs 2 GM/50 ML BAG ONE; diPHENhydraMINE IV* 50 MG/ML 1 ml VIAL (BENADRYL) IV PRN; fentaNYL* 50 MCG/ML 2 ML VIAL (100 MCG VIAL) ONE
[2019-01-16] MEDS: fentaNYL* 50 MCG/ML 2 ML VIAL (100 MCG VIAL) IV PRN ×2 (19:45→19:50)
[2019-01-16 21:08] VITALS: BP 163/95
--- NOTE | 2019-01-17 12:53 | OP ---
CC: PCP, Chucho Zaragoza MD * DATE OF OPERATION: 01/16/19 - [facility] DATE OF : 66 SURGEON: Kareen Hunt MD. CRM MARKETING MANAGER: EUGENE Lorenzana. An sales service assistant was needed for the entirety of the case to help with position, retraction, and was utilized throughout all portions of the case. ANESTHESIOLOGIST: Dr. Page. ANESTHESIA: General. PRE-OP DIAGNOSES: 1. Right shoulder osteoarthritis. 2. Right shoulder partial-thickness tear of the rotator cuff with bicipital tendonitis. POST-OP DIAGNOSES: 1. Right shoulder osteoarthritis. 2. Right shoulder partial-thickness tear of the rotator cuff with bicipital tendonitis. OPERATIVE PROCEDURE: Right shoulder arthroscopy with: 1. Extensive glenohumeral debridement including biceps tenotomy and chondroplasty. 2. Subacromial decompression with acromioplasty. 3. Rotator cuff repair using Regeneten patch. COMPLICATIONS: None. ESTIMATED BLOOD LOSS: Minimal. IMPLANTS: One size medium Regeneten patch. INDICATIONS: Stas Ivory is a 48-year-old man who sustained a work-related injury. He has had persistent increasing pain. He does have some arthritis on imaging, but he had a partial-thickness tear of the rotator cuff. He responded to the injection, physical therapy, antiinflammatories, ice, and heat initially and then it began to bother him. After extensive discussion of the risks and benefits of operative versus nonoperative treatment, he has elected to proceed with surgical treatment. Risks included but not limited to bleeding, infection , damage to nerves; vessels; surrounding structures, wound nonhealing, persistent pain, need for further surgery, scarring, stiffness, incomplete relief of symptoms, and risks of anesthesia. DESCRIPTION OF PROCEDURE: The patient was greeted in the preoperative area by the attending surgeon. The correct extremity was marked and consent was confirmed. The patient was brought back to the operating suite and was placed in the supine position on the operating table. He then underwent general anesthesia with endotracheal intubation, after which he was placed in the left lateral decubitus position with all bony prominences padded and secured with pegboard. The right arm was draped unsterile with 10 pounds of traction. The right shoulder was then prepped and draped in the usual sterile fashion, beginning with chlorhexidine soap, scrub, and alcohol wipe and a final prep of ChloraPrep. After appropriate surgical pause indicating the side, site, procedure, and administration of antibiotics, the standard posterolateral portal was made sharply with 11 blade. The scope was introduced into the joint and the joint was examined. It was difficult to get into the joint to begin with due to a very stiff shoulder. The scope was positioned in the subacromial space initially and a lateral portal was made in an outside-in fashion. A shaver was used to do decompression. This exposed some partial tearing of the bursal side of the rotator cuff. The undersurface of the acromion was skeletonized. At this point, some soft tissues were cleared and an incision was made to try to get into the joint anteriorly. An 18-gauge needle was used to localize the anterior aspect of the joint and then a cannula was placed. This helped to facilitate scope placement in the joint. Once the joint was visualized, there was abundant arthritis that was present more than it appeared on the MRI. The biceps was then visualized and found to be subluxed and there was a SLAP type II tear. There was no obvious loose body. A shaver was used to debride back the anterior, posterior and superior labrum and do a biceps tenotomy. The undersurface of the rotator cuff appeared to be intact with some mild fraying. The suprascapularis and subscapularis was intact. Attention was directed back to the subacromial space. With the scope positioned in the subacromial space, a 4-0 oval ozzie was then used to do an acromioplasty to remove the moderate-size anterolateral spur. The decision was made because of this patient's symptoms to try to treat the rotator cuff. He did have interstitial tearing. The Regeneten patches were then brought into the field and then placed under arthroscopic and direct visualization. It was then secured through separate stab incision with tendon sekou and then laterally with PEEK sekou to the bone. Final images were obtained. The wound was copiously irrigated with sterile saline. The portals were closed with 3-0 nylon and sterile dressings were applied. A regular sling was applied. The wounds were injected with about 32 cc of 0.25% ropivacaine. Sterile dressings were applied, a Cryo/Cuff and a regular sling. He was awoken from anesthesia and transferred to the PACU in stable condition. POSTOPERATIVE PLAN: He will be nonweightbearing. He will start range of motion and physical therapy in the next few days. He will be discharged on pain medications. DVT prophylaxis was considered but deferred, but he is on Eliquis, so he will restart that on postop day 1. [id number]/[facility] #: [id number] MTDStacey
== END | disposition home or self-care (01) ==
LOC: OR 13:17
PROVIDERS: ATTEND Orthopaedic Surgery
DX: S46.011A Strain of muscle(s) and tendon(s) of the rotator cuff of right shoulder, initial encounter (principal); S46.111A Strain of muscle, fascia and tendon of long head of biceps, right arm, initial encounter; M75.21 Bicipital tendinitis, right shoulder; M19.011 Primary osteoarthritis, right shoulder; I10 Essential (primary) hypertension; J45.909 Unspecified asthma, uncomplicated; E78.00 Pure hypercholesterolemia, unspecified; Z86.718 Personal history of other venous thrombosis and embolism; Z79.01 Long term (current) use of anticoagulants; Z88.0 Allergy status to penicillin; Z72.0 Tobacco use; X58.XXXA Exposure to other specified factors, initial encounter; Y92.9 Unspecified place or not applicable; Y99.0 Civilian activity done for income or pay
CPT/HCPCS: A9270-GY; C1713; J0330; J0690; J1100; J1885; J2250; J2405; J2704; J2795; J3010

== ENCOUNTER 2019-03-11 08:35 | Emergency (ER) | payer BC, OTHER ==
--- OUTSIDE RECORDS SUMMARY | 2019-03-11 08:44 | XMS REPORT | Continuity of Care Document ---
:1970 External Reference #:[id number] Author Name Kareen Hunt MD (transmitted by agent of provider Ryann Foley) Address [address] [facility], [facility] [place] [address] Care Team Providers Name Role Phone Chucho Zaragoza MD - Family Medicine Care Team Information Director Search Problems Active Problems Provider Date Strain of rotator cuff capsule Kareen Hunt MD Onset: 11/22/2018 Strain of muscle of long head of biceps brachii Kareen Hunt MD Onset: 11/22 Social History Type Date Description Comments Sex Unknown Tobacco Use Start: Unknown chewing tobacco Smoking Status Reviewed: 01/29/19 chewing tobacco Allergies, Adverse Reactions, Alerts Active Allergies Reaction Severity Comments Date Penicillin 10/26/2018 Medications Active Medications SIG Qnty Indications Ordering Date Provider Diclofenac Sodium apply up to 4 300gm M19.011 Kareen Hunt MD 01/29/2019 1% Gel times a day to right shoulder as needed Carvedilol Take 1 Tablet By Unknown 3.125mg Tablets Mouth Twice Daily Furosemide Take 1 Tablet By Unknown 40mg Tablets Mouth Once Daily Invokana Take 1 Tablet By Unknown 300mg Tablets Mouth Once Daily Before The First Meal Of The Day Eliquis Take 1 Tablet By Unknown 5mg Tablets Mouth Twice Daily Glipizide Take 1 Tablet By Unknown 10mg Tablets Mouth Twice Daily Amiodarone HCL Fredrick, 200mg MD Fransico Tablets Atorvastatin Calcium Unknown 40mg Tablets Spironolactone Take 1 Tablet By Unknown 25mg Tablets Mouth Once Daily Entresto Take 1 Tablet By Unknown 24-26mg Tablets Mouth Twice Daily Chucho Epps, 1.5mg/0.5ML Solution Pen-Inject History Medications Percocet take 1 tabs by jaspreet Hunt MD 01/16/2019 - 5-325mg Tablets mouth q4-6 hours 01/29/2019 as needed pain Cyclobenzaprine HCL 1-2 tablets by jaspreet Hunt MD 10/26/2018 - 5mg Tablets mouth every 8 01/29/2019 hours as needed for muscle spasm Medications Administered in Office Medication SIG Qnty Indications Ordering Provider Date Triamcinolone (Kenalog) Kareen Hunt MD 11/22/2018 Injection Immunizations Description No Information Available Vital Signs Date Vital Result Comment 01/29/2019 8:13am Height 73 inches 6'1" Weight 305.00 lb Heart Rate 72 /min BP Systolic 120 mmHg BP Diastolic 88 mmHg Respiratory Rate 16 /min Body Temperature 97.8 F Pain Level 4 BMI (Body Mass Index) 40.2 kg/m2 12/18/2018 8:56am Height 73 inches 6'1" Weight 314.00 lb Heart Rate 80 /min BP Systolic 130 mmHg BP Diastolic 78 mmHg Body Temperature 98.2 F Pain Level 5 BMI (Body Mass Index) 41.4 kg/m2 Results Test Acquired Date Facility Test Result H/L Range Note Laboratory test 01/16/2019 [facility] of 93 mg/dL Normal 70-100 1 finding 101 DATES [facility] Care Glucose [place], [place] [id number] [phone] Laboratory test 01/16/2019 [facility] of 102 mg/dL High 70-[address] [place] [address] [phone] Corrective Therapist: [id number] 2 Corrective Therapist: [id number] Procedures Date Code Description Status 01/16/2019 27608 Arthroscopy Shoulder,W/Rotator Cuff Repair Completed 01/16/2019 13529 Arthroscopy Shoulder,W/Rotator Cuff Repair Completed 01/16/2019 27054 Arthroscopy,Shoulder Decompression Of Subacromial Space Completed W/Acromio 01/16/2019 08383 Arthroscopy,Shoulder Decompression Of Subacromial Space Completed W/Acromio 11/22/2018 57212 Inject/Drain Joint/Bursa Major W/O US Completed Medical Devices Description No Information Available Encounters Type Date Location Provider Dx Diagnosis Office Visit 11/22/2018 Diane Hunt MD S46.011D Strain of 1:00p at [place] musc/tend the rotator cuff of right shoulder, subs S46.111D Strain of musc/fasc/tend long hd bicep, right arm, subs Office Visit 10/26/2018 9:00a [facility] Kareen Hunt, M25.511 Pain in right at [place] shoulder S46.011A Strain of musc/tend the rotator cuff of right shoulder, init S19.9xxA Unspecified injury of neck, initial encounter Assessments Date Code Description Provider 01/29/2019 M19.011 Primary osteoarthritis, right shoulder Kareen Hunt MD 01/29/2019 S46.011A Strain of muscle(s) and tendon(s) of the Kareen Hunt MD rotator cuff of right shoulder, initial encounter 01/29/2019 M75.21 Bicipital tendinitis, right shoulder Kareen Hunt MD 01/16/2019 M19.011 Primary osteoarthritis, right shoulder Angeline Madden RPA- C 01/16/2019 S46.011A Strain of muscle(s) and tendon(s) of the Angeline Madden RPA-Demarcus rotator cuff of right shoulder, initial encounter 01/16/2019 M75.21 Bicipital tendinitis, right shoulder Angeline Madden RPA-C 01/16/2019 M19.011 Primary osteoarthritis, right shoulder Kareen Hunt MD 01/16/2019 S46.011A Strain of muscle(s) and tendon(s) of the Kareen Hunt MD rotator cuff of right shoulder, initial encounter 01/16/2019 M75.21 Bicipital tendinitis, right shoulder Kareen Hunt MD 12/18/2018 S46.011D Strain of muscle(s) and tendon(s) of the Kareen Hunt MD rotator cuff of right shoulder, subsequent encounter 12/18/2018 S46.111D Strain of muscle, fascia and tendon of long Kareen Hunt MD head of biceps, right arm, subsequent encounter 11/22/2018 S46.011D Strain of muscle(s) and tendon(s) of the Kareen Hunt MD rotator cuff of right shoulder, subsequent encounter 11/22/2018 S46.111D Strain of muscle, fascia and tendon of long Kareen Hunt MD head of biceps, right arm, subsequent encounter 10/26/2018 M25.511 Pain in right shoulder Kareen Hunt MD 10/26/2018 S46.011A Strain of muscle(s) and tendon(s) of the Kareen Hunt MD rotator cuff of right shoulder, initial encounter 10/26/2018 S19.9xxA Unspecified injury of neck, initial encounter Kareen Hunt MD Plan of Treatment Future Appointment(s):03/05/2019 8:45 am - Kareen Hunt MD at [facility] at [id number]/29/2019 - Kareen Hunt, MDM19.011 Primary osteoarthritis , right shoulderNew Medication:Diclofenac Sodium 1 % - apply up to 4 times a day to right shoulder as neededFollow up:Follow up: 4 weeks with RonenYS46.011A Strain of muscle(s) and tendon(s) of the rotator cuff of right shoulder, initial elrgxzioeN35.21 Bicipital tendinitis, right shoulder Functional Status Description No Information Available Mental Status Description No Information Available Referrals Description No Information Available
--- OUTSIDE RECORDS SUMMARY | 2019-03-11 08:44 | XMS REPORT | Continuity of Care Document ---
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 [phone] Problems Active Problems Provider Date Morbid obesity Fransico Alcala M.D., Onset: 12/05/2017 [facility] Hyperlipidemia Fransico Alcala M.D., Onset: 12/05/2017 [facility] Type 2 diabetes mellitus Fransico Alcala M.D., Onset: 12/05/2017 [facility] Cardiomyopathy, unspecified Fransico Alcala M.D., Onset: 12/05/2017 [facility] Heart failure, unspecified Fransico Alcala M.D., Onset: 02/15/2018 [facility] Cerebral artery occlusion Fransico Alcala M.D., Onset: 03/20/2018 [facility] Paroxysmal ventricular tachycardia Fransico Alcala M.D., Onset: 2018 [facility] 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, 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 Social History Type Date Description Comments Sex Unknown Tobacco Use Start: Unknown Never Smoked Cigarettes Smoking Status Reviewed: 03/06/19 Never Smoked Cigarettes ETOH Use Currently consumes alcohol socially Recreational Drug Use Denies Drug Use Allergies, Adverse Reactions, Alerts Active Allergies Reaction Severity Comments Date Penicillin 06/04/2013 Medications Active Medications SIG Qnty Indications Ordering Date Provider Carvedilol take one tablet 180tabs Fransico Alcala 07/05/2018 3.125mg Tablets by mouth twice Dede Graff, [facility] a day Eliquis Take 1 Tablet 60tabs I63.9 Carolyn Ferris 03/05/2018 5mg Tablets By Mouth Twice Kishore, MSN, Daily CAMPAIGN MARKETING SPECIALIST Amiodarone HCL 1 by mouth 90tabs Fransico Alcala 03/05/2018 200mg every day Dede Graff, [facility] Tablets Entresto take one tablet 180tabs Fransico Alcala 02/15/2018 24-26mg Tablets by mouth twice Dede Graff, [facility] a day Lasix 1 by mouth 90tabs Fransico Alacla 02/15/2018 40mg Tablets every day Dede Graff, [facility] Spironolactone 1 by mouth 90tabs Fransico Alcala 02/15/2018 25mg Tablets every day Dede Graff, [facility] Glipizide 1 po bid Unknown Tablets Atorvastatin Calcium 1 by mouth Unknown 40mg every day at Tablets night Invokana 1 by mouth 90tabs Chucho Zaragoza, 300mg Tablets every day Chucho Rodriguez, 1.5mg/0.5ML MD Solution Pen-Inject History Medications Enoxaparin Sodium 120mg SQ bid 2 days 8ml Fransico Alcala, 2018 - prior to the Dede, [facility] Unknown 120mg/0.8ML Solution surgery. None on the day. Restart the day after unless the surgeon considers safe to restart Eliquis Medications Administered in Office Medication SIG Qnty Indications Ordering Provider Date Depomedrol 40mg/1cc Delta Vyas, D.OLisa 07/17/2013 (methylprednisolone acetate) Injection Immunizations Description No Information Available Vital Signs Date Vital Result Comment 03/06/2019 8:06am BP Systolic Sitting Left Arm 120 mmHg BP Diastolic Sitting Left Arm 78 mmHg Heart Rate 74 /min Respiratory Rate 20 /min Height 72 inches 6'0" Weight 322.00 lb BMI (Body Mass Index) 43.7 kg/m2 BSA (Body Surface Area) 2.61 m2 Wallace body weight in kilograms 81 kg O2 Saturation Level with Exercise 98 % 09/04/2018 4:05pm BP Systolic Sitting Left Arm 122 mmHg BP Diastolic Sitting Left Arm 80 mmHg Heart Rate 82 /min Respiratory Rate 18 /min Height 72 inches 6'0" Weight 300.00 lb BMI (Body Mass Index) 40.7 kg/m2 BSA (Body Surface Area) 2.53 m2 Wallace body weight in kilograms 81 kg O2 % BldC Oximetry 96 % Results Description No Information Available Procedures Description No Information Available Medical Devices Description No Information Available Encounters Type Date Location Provider Dx Diagnosis Office Visit 03/06/2019 Cardiology Office Fransico Alcala I42.9 Cardiomyopathy, 8:00a Dede Graff, [facility] unspecified I47.2 Ventricular tachycardia E78.5 Hyperlipidemia, unspecified E11.9 Type 2 diabetes mellitus without complications I63.9 Cerebral infarction, unspecified Office Visit 09/04/2018 Cardiology Fredrick I42.9 Cardiomyopathy, 4:00p Office Fransico Graff M.D., unspecified [facility] I47.2 Ventricular tachycardia I25.10 Athscl heart disease of [place] coronary artery w/o ang pctrs I63.9 Cerebral infarction, unspecified E78.5 Hyperlipidemia, unspecified E11.9 Type 2 diabetes mellitus without complications Assessments Date Code Description Provider 03/06/2019 I42.9 Cardiomyopathy, unspecified Fransico Alcala M.D., [facility] 03/06/2019 I47.2 Ventricular tachycardia Fransico Alcala M.D., [facility] 03/06/2019 E78.5 Hyperlipidemia, unspecified Fransico Alcala M.D., [facility] 03/06/2019 E11.9 Type 2 diabetes mellitus without Fransico Alcala M.D., complications [facility] 03/06/2019 I63.9 Cerebral infarction, unspecified Fransico Alcala M.D., [facility]ACC 09/04/2018 I42.9 Cardiomyopathy, unspecified Fransico Alcala M.D., FAC 09/04/2018 I47.2 Ventricular tachycardia Fransico Alcala M.D., [facility] 09/04/2018 I25.10 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 , [place] coronary artery with [facility] 09/04/2018 I63.9 Cerebral infarction, unspecified Fransico Alcala M.D., [facility] 09/04/2018 E78.5 Hyperlipidemia, unspecified Fransico Alcala M.D., [facility] 09/04/2018 E11.9 Type 2 diabetes mellitus without Fransico Alcala M.D., complications [facility] Plan of Treatment Future Appointment(s):09/11/2019 8:40 am - Fransico Alcala M.D., [facility] at Cardiology [facility]ucjii3603/06/2019 - Fransico Alcala M.D., FACCI42.9 Cardiomyopathy, unspecifiedNew Labs:Basic Metabolic Panel, Ordered: Comments:He has shown already improvement of his EF. Will continue with Entresto, Carvedilol, and aldactone.I47.2 Ventricular tachycardiaComments:No evidence of recurrence on amiodarone. He refused ICD.E78.5 Hyperlipidemia, unspecifiedComments:On statin.E11.9 Type 2 diabetes mellitus without complicationsComments:Now on a glucagon blhhqeadyE43.9 Cerebral infarction, unspecifiedComments:No recurrence. Will continue with Eliquis. Functional Status Functional Condition Comment Date Status Independent with all ADL's Active Mental Status Description No Information Available Referrals Description No Information Available
--- OUTSIDE RECORDS SUMMARY | 2019-03-11 08:44 | XMS REPORT | Continuity of Care Document ---
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 Problems Provider Date Strain of rotator cuff capsule Kareen Hunt MD Onset: 11/22/2018 Strain of muscle of long head of biceps brachii Kareen Hunt MD Onset: 11/22 Social History Type Date Description Comments Sex Unknown Tobacco Use Start: Unknown chewing tobacco Smoking Status Reviewed: 03/05/19 chewing tobacco Allergies, Adverse Reactions, Alerts Active Allergies Reaction Severity Comments Date Penicillin 10/26/2018 Medications Active Medications SIG Qnty Indications Ordering Date Provider Diclofenac Sodium apply up to 4 300gm M19.011 Kareen Hunt MD 01/29/2019 1% Gel times a day to right shoulder as needed Tramadol HCL take 1 tab by 20tabs Kareen Hunt MD 01/29/2019 50mg Tablets mouth every four-six hours as needed for pain Carvedilol Take 1 Tablet By Unknown 3.125mg [...] 10mg Tablets Mouth Twice Daily Amiodarone HCL Fredrick 200mg MD Fransico Tablets Atorvastatin Calcium Unknown 40mg Tablets Spironolactone Take 1 Tablet By Unknown 25mg Tablets Mouth Once Daily Entresto Take 1 Tablet By Unknown 24-26mg Tablets Mouth Twice Daily Chucho Epps, 1.5mg/0.5ML Solution Pen-Inject History Medications Percocet take 1 tabs by 30tamaria fernanda Hunt MD 01/16/2019 - 5-325mg Tablets mouth q4-6 hours 01/29/2019 as needed pain Cyclobenzaprine HCL 1-2 tablets by 30tamaria fernanda Hunt MD 10/26/2018 - 5mg Tablets mouth every 8 01/29/2019 hours as needed for muscle spasm Medications Administered in Office Medication SIG Qnty Indications Ordering Provider Date Triamcinolone (Kenalog) Kareen Hunt MD 11/22/2018 Injection Immunizations Description No Information Available Vital Signs Date Vital Result Comment 03/05/2019 8:23am Height 73 inches 6'1" Weight 310.00 lb Heart Rate 87 /min Respiratory Rate 18 /min Body Temperature 98.3 F Pain Level 0 BMI (Body Mass Index) 40.9 kg/m2 01/29/2019 8:13am Height 73 inches 6'1" Weight 305.00 lb Heart Rate 72 /min BP Systolic 120 mmHg BP Diastolic 88 mmHg Respiratory Rate 16 /min Body Temperature 97.8 F Pain Level 4 BMI (Body Mass Index) 40.2 kg/m2 Results Test Acquired Date Facility Test Result H/L Range Note Laboratory test 01/16/2019 [facility] 93 mg/dL Normal 70-100 1 finding 101 DATES [facility] Glucose [place], [place] [id number] [phone] Laboratory test 01/16/2019 [facility] of 102 mg/dL High 70-100 2 finding 101 DATES [facility] Glucose [place], [place] [id number] [phone] Analytical Lab Analyst: [id number] Analytical Lab Analyst: [id number] Procedures Date Code Description Status 01/16/2019 15791 Arthroscopy Shoulder,W/Rotator Cuff Repair Completed 01/16/2019 55644 Arthroscopy Shoulder,W/Rotator Cuff Repair Completed 01/16/2019 91716 Arthroscopy,Shoulder Decompression Of Subacromial Space Completed W/Acromio 01/16/2019 42699 Arthroscopy,Shoulder Decompression Of Subacromial Space Completed W/Acromio 11/22/2018 61148 Inject/Drain Joint/Bursa Major W/O US Completed Medical Devices Description No Information Available Encounters Type Date Location Provider Dx Diagnosis Office Visit 11/22/2018 Diane Hunt MD S46.011D Strain of 1:00p at [place] musc/tend the rotator cuff of right shoulder, subs S46.111D Strain of musc/fasc/tend long hd bicep, right arm, subs Office Visit 10/26/2018 9:00a [facility] Kareen Hunt, M25.511 Pain in right at [place] MD shoulder S46.011A Strain of musc/tend the rotator cuff of right shoulder, init S19.9xxA Unspecified injury of neck, initial encounter Assessments Date Code Description Provider 03/05/2019 M19.011 Primary osteoarthritis, right shoulder Kareen Hunt MD 03/05/2019 S46.011D Strain of muscle(s) and tendon(s) of the Kareen Hunt MD rotator cuff of right shoulder, subsequent encounter 03/05/2019 M75.21 Bicipital tendinitis, right shoulder Kareen Hunt MD 01/29/2019 M19.011 Primary osteoarthritis, right shoulder Kareen Hunt MD 01/29/2019 S46.011D Strain of muscle(s) and tendon(s) of the Kareen Hunt MD rotator cuff of right shoulder, subsequent encounter 01/29/2019 M75.21 Bicipital tendinitis, right shoulder Kareen Hunt MD 01/16/2019 M19.011 Primary osteoarthritis, right shoulder BROOKS Lorenzana 01/16/2019 S46.011A Strain of muscle(s) and tendon(s) of the DIANA Lorenzana rotator cuff of right shoulder, initial encounter 01/16/2019 M75.21 Bicipital tendinitis, right shoulder DIANA Lorenzana 01/16/2019 M19.011 Primary osteoarthritis, right shoulder Kareen [...] Strain of muscle, fascia and tendon of cecil Hunt MD head of biceps, right arm, subsequent encounter 11/22/2018 S46.011D Strain of muscle(s) and tendon(s) of the Kareen Hunt MD rotator cuff of right shoulder, subsequent encounter 11/22/2018 S46.111D Strain of muscle, fascia and tendon of cecil Hunt MD head of biceps, right arm, subsequent encounter 10/26/2018 M25.511 Pain in right shoulder Kareen Hunt MD 10/26/2018 S46.011A Strain of muscle(s) and tendon(s) of the Kareen Hunt MD rotator cuff of right shoulder, initial encounter 10/26/2018 S19.9xxA Unspecified injury of neck, initial encounter Kareen Hunt MD Plan of Treatment Future Appointment(s):04/19/2019 8:00 am - Chucho Oswald MD at [facility] at [facility]/28/2020 - Kareen Hunt, MDM19.011 Primary osteoarthritis, right shoulderFollow up:Follow up: [address] Brewer46.011D Strain of muscle(s) and tendon(s) of the rotator cuff of right shoulder, subsequent kytkeprkqJ27.21 Bicipital tendinitis, right shoulder Functional Status Description No Information Available Mental Status Description No Information Available Referrals Description No Information Available
--- OUTSIDE RECORDS SUMMARY | 2019-03-11 08:44 | XMS REPORT | Continuity of Care Document ---
:1970 External Reference #:[id number] Author Name Joe Ko NP Address [address] [place] [id number] Care Team Providers Name Role Phone Audi Hale MD - Internal Care Team Information [facility] Chucho Zaragoza MD - Family Care Team Information [facility] Problems Active Problems Provider Date Increased frequency of urination Solis Dacosta M.D. Onset: 03/24/2011 Impotence of organic origin Solis Dacosta M.D. Onset: 03/24/2011 Social History Type Date Description Comments Sex Unknown Tobacco Use Start: Unknown End: Unknown Quit - Age 38 Smoking Status Reviewed: 01/31/19 Quit - Age 38 ETOH Use Currently consumes alcohol Allergies, Adverse Reactions, Alerts Active Allergies Reaction Severity Comments Date Penicillin unknown 07/14/2010 Morphine unknown 07/23/2010 Medications Active Medications SIG Qnty Indications Ordering Provider Date Glipizide Chucho Zaragoza 10mg Tablets MD Kimberly Furosemide Fredrick, 40mg Tablets MD Fransico [facility] Spironolactone Fredrick, 25mg Tablets MD Fransico [facility] Eliquis Take 1 Tablet By Unknown 5mg Tablets Mouth Twice Daily Invokana Chucho Zaragoza 300mg Tablets MD Kimberly Entresto Take 1 Tablet By Unknown 24-26mg Tablets Mouth Twice Daily Carvedilol Fredrick, 3.125mg Tablets MD Fransico [facility] TrulicChucho Snow 1.5mg/0.5ML MD Kimberly Solution Pen-Inject Amiodarone HCL Fredrick, 200mg Tablets MD Fransico [facility] Atorvastatin Calcium Unknown 40mg Tablets Immunizations Description No Information Available Vital Signs Date Vital Result Comment 01/31/2019 9:27am Height 71 inches 5'11" Weight 305.00 lb Weight 138.348 kg BMI (Body Mass Index) 42.5 kg/m2 10/02/2018 3:01pm Height 61 inches 5'1" Weight 303.00 lb Weight 137.441 kg BMI (Body Mass Index) 57.2 kg/m2 BP Systolic 113 mmHg BP Diastolic 72 mmHg Heart Rate 89 /min Post Void Residual ml 12 Bladder Scanner, Indication: Retention Results Test Acquired Date Facility Test Result H/L Range Note 230 Ua Routine 01/31/2019 [facility] Ua Glucose 500 mg/dL REF TO DR ADDRESS ON ORDER FOR (315)- - Ua Protein Negative Ua Nitrite Negative Ua Leuko Negative Ua Blood Negative Ua Color Not Entered Ua Ketones Negative Ua Clarity Not Entered Ua Specific [place] <=1.005 1.003-1.030 Ua PH 5.5 5.0-7.5 Ua Bilirubin Negative Ua Urobilinogen 0.2 E.U./dL 0.0-1.0 Laboratory 10/02/2018 [facility] Testosterone 545.97 300.00-1000.00 test finding [address] ng/[place] [address] [phone] Total Psa Only 0.78 ng/mL 0.00-4.00 230 Ua Routine 10/02/2018 [facility] Ua Glucose >=1000 mg/dL REF TO DR ADDRESS ON ORDER FOR (315)- - Ua Protein Negative Ua Nitrite Negative Ua Leuko Negative Ua Blood Negative Ua Color Not Entered Ua Ketones Negative Ua Clarity Not Entered Ua Specific [place] <=1.005 1.003-1.030 Ua PH 5.0 5.0-7.5 Ua Bilirubin Negative Ua Urobilinogen 0.2 E.U./dL 0.0-1.0 Procedures Date Code Description Status 01/31/2019 01988852 Colonoscopy Completed 10/02/2018 45762 Bladder Scan, Post Voiding Residual Urine Completed Medical Devices Description No Information Available Encounters Type Date Location Provider Dx Diagnosis Office Visit 01/31/2019 [facility] Joe Ko NP N52.9 Male erectile 8:45a Street/ A[facility] dysfunction, Urology unspecified Office Visit 11/01/2018 [facility] Joe Ko NP N52.9 Male erectile 3:00p Street/ [facility] dysfunction, Urology unspecified Office Visit 10/02/2018 [facility] Jose Hull, N52.9 Male erectile 3:10p Street/ [facility] dysfunction, Urology unspecified R33.9 Retention of urine, unspecified Assessments Date Code Description Provider 01/31/2019 N52.9 Male erectile dysfunction, unspecified Joe Ko NP 11/01/2018 N52.9 Male erectile dysfunction, unspecified Joe Ko NP 10/02/2018 N52.9 Male erectile dysfunction, unspecified Jose Hull MD 10/02/2018 R33.9 Retention of urine, unspecified Jose Hull MD 10/02/2018 N52.9 Male erectile dysfunction, unspecified Joaquina Peterson MD Plan of Treatment Future Appointment(s):08/02/2019 1:45 pm - Joe Ko NP at [facility] / [facility] [place]04/26/2019 - Joe Ko NPN52.9 Male erectile dysfunction, unspecifiedComments:The patient is interested in a three-piece penile prosthesis at this time. We did discuss the risksand benefits of permanent placement of a [address] Miller did come in and discuss this with the patient and the patient has a large suprapubic fat pad that would contraindicate placing a three-piece penile prosthesis at this time. We would like to give the patient approximately6 months to attempt to lose some weight and continue to manage his A1c aggressively. If after 6 months time he is unable to lose the weight adequately and decrease the amount of suprapubic fat we willneed to send the patient to plastic surgery for possible liposuction of the suprapubic pad. The patient states understanding and will call with any further concerns. Functional Status Description No Information Available Mental Status Description No Information Available Referrals Description No Information Available
[2019-03-11 09:10] VITALS: BP 124/74
[2019-03-11] MEDS ORDERED: Albuterol/Ipratropium NEB.SOL* Albuterol 2.5 MG/Ipratropium 0.5 MG 3 ML INH ONE (09:58)
[2019-03-11 10:13] LABS: Influenza A Molecular Negative (Negative); Influenza B Molecular Negative (Negative)
--- NOTE | 2019-03-11 10:21 | UC ---
FLU HPI - HPI Summary HPI Summary: Pt presents with c/o sudden onset of fever, chills, body aches, nasal and chest congestion, wheezing and sob . - History of Current Complaint Chief Complaint: UCRespiratory Stated Complaint: CONGESTION COUGH BODYACHES Time Seen by Provider: 03/11/19 09:42 Hx Obtained From: Patient Onset/Duration: Gradual Onset, Lasting Days, Still Present Severity Currently: Mild Severity Initially: Moderate Pain Intensity: 4 Associated Signs & Symptoms: Positive: Fever, Myalgia, Cough, Nasal Congestion Related Hx: Possible Flu/Infectious Exposure - Risk Factors Influenza Risk Factors: Negative - Allergy/Home Medications Allergies/Adverse Reactions: Allergies Allergy/AdvReac Type Severity Reaction Status Date / Time Penicillins Allergy Anaphylatic Verified 03/11/19 09:03 Shock PMH/Surg Hx/FS Hx/Imm Hx Previously Healthy: Yes Endocrine History: Diabetes, Dyslipidemia Cardiovascular History: Cardiac Disease, Hypertension Respiratory History: Asthma - Surgical History Surgical History: Yes Surgery Procedure, Year, and Place: L3-S2 Fusion, 2009. Gastric bypass, 2004. Gallbladder - Family History Known Family History: Positive: Cardiac Disease Negative: Hypertension, Diabetes - Social History Occupation: Employed Full-time Lives: With Family Alcohol Use: Occasionally Substance Use Type: None Smoking Status (MU): Current Every Day Smoker Type: Smokeless Tobacco Amount Used/How Often: 1 can a week Length of Time of Smoking/Using Tobacco: 12 Years Have You Smoked in the Last Year: No When Did the Patient Quit Smoking/Using Tobacco: 11 YEARS AGO - Immunization History Most Recent Influenza Vaccination: not this season Vaccination Up to Date: No Review of Systems All Other Systems Reviewed And Are Negative: Yes Constitutional: Positive: Fever, Chills, Fatigue Skin: Positive: Negative Eyes: Positive: Negative ENT: Positive: Sinus Congestion Respiratory: Positive: Shortness Of Breath, Cough, Other - wheezing Cardiovascular: Positive: Negative Gastrointestinal: Positive: Negative Genitourinary: Positive: Negative Motor: Positive: Negative Neurovascular: Positive: Negative Musculoskeletal: Positive: Myalgia Neurological: Positive: Headache Psychological: Positive: Negative Is Patient Immunocompromised?: No Physical Exam Triage Information Reviewed: Yes Appearance: Well-Appearing Vital Signs: Initial Vital Signs Temp 98.4 F 03/11/19 09:06 Pulse 73 03/11/19 09:06 Resp 20 03/11/19 09:06 BP 124/74 03/11/19 09:06 Pulse Ox 94 03/11/19 09:06 Vital Signs Reviewed: Yes Eye Exam: Normal ENT: Positive: Nasal congestion Dental Exam: Normal Neck exam: Normal Respiratory: Positive: Wheezing Cardiovascular Exam: Normal Musculoskeletal Exam: Normal Neurological Exam: Normal Psychological Exam: Normal Skin Exam: Normal Flu Course/Dx - Differential Dx/Diagnosis Differential Diagnosis/HQI/PQRI: Bronchitis, Influenza, Pneumonia Provider Diagnosis: Pneumonia Discharge ED - Sign-Out/Discharge Documenting (check all that apply): Patient Departure All imaging exams completed and their final reports reviewed: No Studies - Discharge Plan Condition: Stable Disposition: HOME Prescriptions: Benzonatate CAP* [Tessalon 100 MG CAP*] 100 - 200 mg PO Q8H PRN #30 cap PRN Reason: Cough DOXYcycline CAP(*) [DOXYcycline 100MG CAP(*)] 100 mg PO Q12H #20 cap predniSONE 20 mg TAB [Deltasone 20 MG TAB*] 60 mg PO DAILY #18 tab Patient Education Materials: Pneumonia (ED) Referrals: Chucho Zaragoza MD [Primary Care Provider] - As Soon As Possible Additional Instructions: Please follow up with your PCP as soon as you need to. Also, please note that the medication prednisone will raise your blood glucose levels. Please monitor more closely while taking the medication. - Billing Disposition and Condition Condition: STABLE Disposition: Home
== END 2019-03-11 10:33 | disposition home or self-care (01) ==
LOC: UCCORT 08:35
DX: J18.9 Pneumonia, unspecified organism (principal); E11.9 Type 2 diabetes mellitus without complications; I10 Essential (primary) hypertension; F17.290 Nicotine dependence, other tobacco product, uncomplicated; J45.909 Unspecified asthma, uncomplicated; Z88.0 Allergy status to penicillin
CPT/HCPCS: 99212; A9270-GY; G0463